=== PATIENT | female | born 1945 | race Caucasian/White ===

== ENCOUNTER 2023-03-09 12:39 | Emergency (ER) | payer OTHER ==
--- OUTSIDE RECORDS SUMMARY | 2023-03-09 12:43 | XMS REPORT | Continuity of Care Document ---
:1945 Author Organization [facility] t Address [address] [place] [address] [address] [place] [address] Care Team Providers Name Role Phone Saranya Wynn Attending Clinician Unavailable Naif Attending Clinician Unavailable Russ Spann III Attending Clinician Naif Admitting Clinician Unavailable Russ Spann III Admitting Clinician Payers Payer Name Policy Type Policy Number Effective Date Expiration Date Kelton godinez [facility] 53 [id number] Common [facility] Spirit - [facility] - MEDICARE [id number] COMPLETE (MEDICARE REPLACEMENT HMO) Problems Condition Condition Condition Status Onset Resolution Last Treating Co mments Source Name Details Category Date Date Treatment Clinician Date OSTEOARTHR OSTEOARTH Diagnosis Active 2017-06-06 Memoria ITIS RITIS 1-11 21:56:00 l Active 00:00: [facility] 05/11/2017 00 [facility] Essential Essential Problem 2017-09-07 Memoria (primary) (primary) 12:06:17 l hypertensi hypertensi Vikash segundo on on 09/07/2017 [facility] UNILATERAL UNILATERA Diagnosis Active 2017-06-06 Memoria PRIMARY L PRIMARY 21:56:00 l OSTEOARTHR OSTEOARTHR He sanya SANCHEZ ITPOOJA, RIGHT RIGHT Active [facility] Acute Acute Problem 2017-09-07 Memor ia posthemorr posthemorr 12:06:17 l hagic hagic Terry anemia anemia 09/07/2017 [facility] Hypothyroi Hypothyro Problem 2017-09-07 Memoria dism, idism, 12:06:17 l unspecifie unspecifie He sanya cm d 09/07/2017 [facility] 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 09/07/2017 [facility] Unspecifie Unspecifi Problem 2017-09-07 Memoria d asthma, ed asthma, 12:06:17 l uncomplica uncomplica He sanya vik vik 09/07/2017 [facility] Hypothyroi Hypothyroi Problem C ommon dism dism [facility] Gastroesop Gastroesop Problem C ommon hageal hageal Spirit reflux reflux - [facility], [facility] Medica l not Center specified Peripheral Peripheral Problem C ommon edema edema [facility] Hyperlipid Hyperlipid Problem C ommon emia emia [facility] [id number] Atheroscle Problem Co mmon rotic Spirit heart - [facility] disease of [facility] coronary Medical artery Center without angina pectoris Heart Heart Problem Common disease disease, Spirit unspecifie - [facility]I d [facility] [id number] Essential Problem Comm on hypertensi Spirit on [facility] [id number] Medicare Problem Comm on annual Spirit wellness - [facility] visit, [facility] Localized, Primary Problem Comm on primary osteoarthr Spiri t osteoarthr itis of - CHI itis of both hips [facility] pelvic [facility] region and Medica l thigh Center [id number] White coat Problem Com mon syndrome Spirit with - CHI diagnosis [facility] hypertensi Medica l on Center [id number] Glaucoma Problem Com mon [id number] suspect of Spiri t both eyes - [facility] [id number] Presence Problem Comm on of Spirit coronary - [facility]I angioplast [facility] and [facility] Actinic Actinic Problem Common keratosis keratoses Spir it - CHI [facility] [id number] Bilateral Problem Com mon edema of [facility] lower - CHI extremity [facility] Elevated Elevated Problem Commo n blood blood [facility] pressure pressure - CHI reading reading [facility] diagnosis diagnosis [facility] hypertensi hypertensi on on Skin Skin Problem Common cancer cancer [facility] [id number] Prediabete Problem Co mmon s [facility] [id number] Dysuria Problem Common [facility] [id number] Primary Problem Comm on osteoarthr Spirit itis of - [facility] left knee [facility] [id number] Sciatica Problem Commo n of left [facility] side [facility] [id number] Primary Problem Comm on osteoarthr Spirit itis of [facility] left hip [facility] History of Past Illness Condition Condition Condition Status Onset Resolution Last Treating Co mments Source Name Details Category Date Date Treatment Clinician Date Unilateral Unilatera Problem 2017-09-07 2017-09-07 Memoria primary l primary 06-09 12:06:17 12:06:17 l osteoarthr osteoarthr 04:35: He rmann itis, itis, 52 right hip right hip 06/09/2017 09/07/2017 [facility] Allergies, Adverse Reactions, Alerts Allergy Allergy Status Severity Reaction(s) Onset Inactive Treating Comm ents Source Name Type Date Date Clinician acetamin acetamin Active Unknown Commo n ophen / ophen / Spirit hydrocod hydrocod [facility] hydrocor hydrocor Active Unknown Commo n tisone tisone [facility] penicill penicill Active Memori a ins ins l Terry HYDROcod HYDROcod Active Memori a one one l [facility] Social History Social Habit Start Date Stop Date Quantity Comments Source History of Tobacco Common [facility] - Use [facility] Sex Assigned At Common Sp zuly - [facility] Social History 2017-05-31 2017-05-31 Jax jackson 00:26:09 00:26:09 Smoking Status Start Date Stop Date Source Never Smoker [facility] Medications Ordered Filled Start Stop Current Ordering Indication Dosage Frequency Signature Comments Components Source Medication Medication Date Date Medication? Clinician (SIG) Name Name Hyalgan 20 Hyalgan 20 2021-05 No 20mg C ommon mg mg 0-03 Spirit 00:00: - [facility] Hyalgan Hyalgan 2021-05 No 20mg Common 0-03 Spirit 00:00: - [facility] Hyalgan 20 Hyalgan 20 2021-0 No 20mg C ommon mg mg 01-24 Spirit 00:00: - [facility] Hyalgan 20 Hyalgan 20 2021-0 No 20mg C ommon mg mg 01-24 Spirit 00:00: - [facility] Hyalgan Hyalgan 2-0 No 20mg Common 01-24 Spirit 00:00: - [facility]I [facility] Hyalgan 20 Hyalgan 20 2021-0 No 20mg C ommon mg mg 01-24 Spirit 00:00: - [facility]I [facility] Hyalgan 20 Hyalgan 20 2021-0 No 20mg C ommon mg mg 01-17 Spirit 00:00: - [facility]I [facility] Hyalgan 20 Hyalgan 20 2021-0 No 20mg C ommon mg mg 01-17 Spirit 00:00: - [facility] Hyalgan Hyalgan 2021-0 No 20mg Common 01-17 Spirit 00:00: - [facility]I [facility] Hyalgan 20 Hyalgan 20 2021-0 No 20mg C ommon mg mg 01-17 Spirit 00:00: - CHI [facility] Bupivicaine Bupivicaine 2021-0 No 5mg Common Ocate Ocate 8-30 Spirit 00:00: - CHI [facility] Kenalog Kenalog 2021-0 No 40mg Common (Triamcinol (Triamcinol 8-30 S pirit one) one) 00:00: - CHI [facility] Bupivicaine Bupivicaine 2-0 No 5mg Common Ocate Ocate 8-30 Spirit 00:00: - CHI [facility] Kenalog Kenalog 2-0 No 40mg Common (Triamcinol (Triamcinol 8-30 S pirit one) one) 00:00: - CHI [facility] Bupivicaine Bupivicaine 2-0 No 5mg Common Ocate Ocate 8-30 Spirit 00:00: - CHI [facility] Kenalog Kenalog 2-0 No 40mg Common (Triamcinol (Triamcinol 8-30 S pirit one) one) 00:00: - CHI [facility] Bupivicaine Bupivicaine 2021-0 No 5mg Common Ocate Ocate 8-30 Spirit 00:00: - CHI [facility] Kenalog Kenalog 0 No 40mg Common (Triamcinol (Triamcinol 8-30 S pirit one) one) 00:00: - CHI [facility] Bupivicaine Bupivicaine 2021-0 No 5mg Common Ocate Ocate 8-30 Spirit 00:00: - CHI [facility] Kenalog Kenalog 0 No 40mg Common (Triamcinol (Triamcinol 8-30 S pirit one) one) 00:00: - CHI [facility] Bupivicaine Bupivicaine 2021-0 No 5mg Common Ocate Ocate 8-30 Spirit 00:00: - CHI [facility] Kenalog Kenalog 0 No 40mg Common (Triamcinol (Triamcinol 8-30 S pirit one) one) 00:00: - CHI [facility] Bupivicaine Bupivicaine 0 No 5mg Common Ocate Ocate 8-30 Spirit 00:00: - CHI 00 [facility] Kenalog Kenalog 0 No 40mg Common (Triamcinol (Triamcinol 8-30 S pirit one) one) 00:00: - CHI 00 [facility] Furosemide Furosemide 2017-0 Yes Na Wynn 1 tablet Common 07-20 Spirit 00:00: - CHI [facility] tramadol 0 No 50 mg = 1 Bong jennifer hydrochlori 2-01 tab, PO, l de 50 MG 13:59: RQ4H, PRN Herm carlos Oral Tablet 00 Pain Score 6-10, Q 4 hrs prn severe pain, # 60 tab, 0 Refill(s) tramadol 0 No 50 mg = 1 Bong jennifer hydrochlori 2-01 tab, PO, l de 50 MG 13:59: RQ4H, PRN Herm carlos Oral Tablet 00 Pain Score 6-10, Q 4 hrs prn severe pain, # 60 tab, 0 Refill(s) celecoxib 0 Yes 200 mg = 1 Me moria 200 mg oral 2-01 cap, PO, l capsule 13:42: Daily, # Lukas n 00 30 cap, 0 Refill(s) Aspirin 325 2018- Yes 325 mg = 1 Memoria MG Enteric 2-01 tab, PO, l Coated 13:42: BID, # 60 Lukas n Tablet 00 tab, 0 Refill(s) celecoxib 2017- Yes 200 mg = 1 Me moria 200 mg oral 2-01 cap, PO, l capsule 13:42: Daily, # Lukas n 00 30 cap, 0 Refill(s) Aspirin 325 2017- Yes 325 mg = 1 Memoria MG Enteric 2-01 tab, PO, l Coated 13:42: BID, # 60 Lukas n Tablet 00 tab, 0 Refill(s) clindamycin 2017-0 No 600 mg, 50 Memoria (SCIP) 1-31 mL, Route: l 07:00: IVPB, Drug Terry 00 form: INJ, Q6H, Dosing Weight 89.091, kg, Start date: 05/31/17 1:00:00 RUBBING BED OPERATOR, Duration: 3 doses or times, Stop date: 05/31/17 13:00:00 RUBBING BED OPERATOR, ABX Indication : Surgical Prophylaxi s clindamycin 2017-0 No 600 mg, 50 Memoria (SCIP) 1-31 mL, Route: l 07:00: IVPB, Drug [facility] 00 form: INJ, Q6H, Dosing Weight 89.091, kg, Start date: 05/31/17 1:00:00 RUBBING BED OPERATOR, Duration: 3 doses or times, Stop date: 05/31/17 13:00:00 RUBBING BED OPERATOR, ABX Indication : Surgical Prophylaxi s celecoxib 2017-0 No Notes: Memori a 1-31 NSAID. l 03:00: Please [facility] 00 check indication . Not for seizure. (Same As: CeleBREX) celecoxib 2017-0 No Notes: Memori a 1-31 NSAID. l 03:00: Please [facility] 00 check indication . Not for seizure. (Same As: CeleBREX) Aspirin 2017-0 No 325 mg, Memoria 1-31 Route: PO, l 01:03: Q12H, [facility] Dosing Weight 89.091, kg, For patients with risk of bleeding, Start date: 05/30/17 19:03:00 RUBBING BED OPERATOR, Stop date: 06/29/17 9:00:00 RUBBING BED OPERATOR Aspirin 2018-0 No 325 mg, Memoria 1-31 Route: PO, l 01:03: Q12H, Terry 00 Dosing Weight 89.091, kg, For patients with risk of bleeding, Start date: 05/30/17 19:03:00 RUBBING BED OPERATOR, Stop date: 06/29/17 9:00:00 RUBBING BED OPERATOR Clindamycin No 600 mg, 50 Memoria 1-31 mL, Route: l 00:00: IVPB, Drug Terry 00 form: INJ, Q6H, Dosing Weight 89.091, kg, Start date: 05/30/17 18:00:00 RUBBING BED OPERATOR, Duration: 3 doses or times, Stop date: 05/31/17 6:00:00 RUBBING BED OPERATOR, ABX Indication : Surgical Prophylaxi s Clindamycin 2017- No 600 mg, 50 Memoria 1-31 mL, Route: l 00:00: IVPB, Drug [facility] 00 form: INJ, Q6H, Dosing Weight 89.091, kg, Start date: 05/30/17 18:00:00 RUBBING BED OPERATOR, Duration: 3 doses or times, Stop date: 05/31/17 6:00:00 RUBBING BED OPERATOR, ABX Indication : Surgical Prophylaxi s Docusate No Notes: Memoria 1-30 (Same as: l 23:00: Colace) Terry 00 (Do Not Crush) Aspirin 325 No Notes: (Do Memoria MG Enteric 1-30 Not Crush) l Coated 23:00: Do not Terry Tablet 00 crush or chew. Docusate No Notes: Memoria 1-30 (Same as: l 23:00: Colace) [facility] 00 (Do Not Crush) Aspirin 325 No Notes: (Do Memoria MG Enteric 1-30 Not Crush) l Coated 23:00: Do not Terry Tablet 00 crush or chew. Ondansetron No Notes: Bong jennifer 1-30 (Same as: l 22:00: Zofran) [facility] 00 MEDICATION WASTE Product Size: 4 mg Product Wasted: ___ mg gabapentin No Notes: Memor ia 1-30 (Same as: l 22:00: Neurontin) Terry Acetaminoph No Notes: Max Memoria en 1-30 acetaminop l 22:00: hen 4000 [facility] 00 mg/day (4 gm/day). (Same as: Tylenol Extra Strength) celecoxib No Notes: Memori a 1-30 NSAID. l 22:00: Please [facility] 00 check indication . Not for seizure. (Same As: CeleBREX) Tramadol No Notes: Not Mem oria 1-30 to exceed l 22:00: 400mg/day. (Same As: Ultram) Ondansetron No Notes: Bong jennifer 30 (Same as: l 22:00: Zofran) MEDICATION WASTE Product Size: 4 mg Product Wasted: ___ mg gabapentin No Notes: Memor ia 05-30 (Same as: l 22:00: Neurontin) Acetaminoph No Notes: Max Memoria en 1-30 acetaminop l 22:00: hen 4000 [facility] 00 mg/day (4 gm/day). (Same as: Tylenol Extra Strength) celecoxib No Notes: Memori a 1-30 NSAID. l 22:00: Please [facility] 00 check indication . Not for seizure. (Same As: CeleBREX) Tramadol No Notes: Not Mem oria -30 to exceed l 22:00: 400mg/day. (Same As: Ultram) neostigmine No Route: IV, Memoria (ANES) 05-30 Drug form: l 21:20: INJ, ONCE, Stop date: 05/30/17 15:20:00 RUBBING BED OPERATOR glycopyrrol No Route: IV, Memoria ate (ANES) 05-30 Drug form: l 21:20: INJ, ONCE, Stop date: 05/30/17 15:20:00 RUBBING BED OPERATOR ondansetron No Route: IV, Memoria (ANES) 05-30 Drug form: l 21:20: INJ, ONCE, Stop date: 05/30/17 15:20:00 RUBBING BED OPERATOR clindamycin No Route: IV, Memoria (ANES) 30 Drug form: l 21:20: INJ, ONCE, Stop date: 05/30/17 15:20:00 RUBBING BED OPERATOR Ondansetron No Notes: Bong jennifer 05-30 (Same as: l 21:20: Zofran) MEDICATION WASTE Product Size: 4 mg Product Wasted: ___ mg Naloxone No Notes: Memoria 05-30 Same as l 21:20: Narcan Flumazenil No Notes: Memor ia 05-30 (Same as: l 21:20: Romazicon) Fentanyl No Notes: Memoria 05-30 (Same as: l 21:20: Sublimaze) Preservati ve free. Calcium No 1,000 mL, Memor ia Chloride 05-30 Rate: 125 l 0.0014 21:20: ml/hr, [facility] MEQ/ML / 00 Infuse Potassium over: 8 Chloride hr, Route: 0.004 IV, Dosing MEQ/ML / Weight Sodium 89.091 kg, Chloride Total 0.103 Volume: MEQ/ML / 1,000, Sodium Start Lactate date: 0.028 05/30/17 MEQ/ML 15:20:00 Injectable RUBBING BED OPERATOR, Solution Duration: 30 day, Stop date: 06/29/17 15:19:00 RUBBING BED OPERATOR, 1.98, m2 Hydralazine No 10 mg, Bong jennifer 05-30 Route: l 21:20: IVP, [facility] 00 Q20Min, Dosing Weight 89.091, kg, PRN Elevated BP, Start date: 05/30/17 15:20:00 RUBBING BED OPERATOR, Duration: 2 doses or times, Stop date: Limited # of times Morphine No Notes: Memoria 05-30 (Same l 21:20: as:MORPhin e Sulfate) Metoprolol No 1 mg, Memori a 05-30 Route: l 21:20: IVP, Terry 00 Q5Min, Dosing Weight 89.091, kg, PRN Other -See Comment, Start date: 05/30/17 15:20:00 RUBBING BED OPERATOR, Duration: 5 doses or times, Stop date: Limited # of times Oxycodone No Notes: Memori a Hydrochlori 05-30 (Same as: l de 5 MG 21:20: Roxicodone Herm carlos Oral Tablet ) neostigmine No Route: IV, Memoria (ANES) 05-30 Drug form: l 21:20: INJ, ONCE, Stop date: 05/30/17 15:20:00 RUBBING BED OPERATOR glycopyrrol No Route: IV, Memoria ate (ANES) 05-30 Drug form: l 21:20: INJ, ONCE, Stop date: 05/30/17 15:20:00 RUBBING BED OPERATOR ondansetron No Route: IV, Memoria (ANES) 05-30 Drug form: l 21:20: INJ, ONCE, Stop date: 05/30/17 15:20:00 RUBBING BED OPERATOR clindamycin No Route: IV, Memoria (ANES) 05-30 Drug form: l 21:20: INJ, ONCE, Stop date: 05/30/17 15:20:00 RUBBING BED OPERATOR Ondansetron No Notes: Bong jennifer 05-30 (Same as: l 21:20: Zofran) MEDICATION WASTE Product Size: 4 mg Product Wasted: ___ mg Naloxone No Notes: Memoria 05-30 Same as l 21:20: Narcan Flumazenil No Notes: Memor ia 05-30 (Same as: l 21:20: Romazicon) Fentanyl No Notes: Memoria 05-30 (Same as: l 21:20: Sublimaze) Preservati ve free. Calcium No 1,000 mL, Memor ia Chloride 05-30 Rate: 125 l 0.0014 21:20: ml/hr, Terry MEQ/ML / 00 Infuse Potassium over: 8 Chloride hr, Route: 0.004 IV, Dosing MEQ/ML / Weight Sodium 89.091 kg, Chloride Total 0.103 Volume: MEQ/ML / 1,000, Sodium Start Lactate date: 0.028 05/30/17 MEQ/ML 15:20:00 Injectable RUBBING BED OPERATOR, Solution Duration: 30 day, Stop date: 06/29/17 15:19:00 RUBBING BED OPERATOR, 1.98, m2 Hydralazine No 10 mg, Bong jennifer 1-30 Route: l 21:20: IVP, Terry 00 Q20Min, Dosing Weight 89.091, kg, PRN Elevated BP, Start date: 05/30/17 15:20:00 RUBBING BED OPERATOR, Duration: 2 doses or times, Stop date: Limited # of times Morphine No Notes: Memoria 1-30 (Same l 21:20: as:MORPhin Terry 00 e Sulfate) Metoprolol No 1 mg, Memori a 1-30 Route: l 21:20: IVP, Terry 00 Q5Min, Dosing Weight 89.091, kg, PRN Other -See Comment, Start date: 05/30/17 15:20:00 RUBBING BED OPERATOR, Duration: 5 doses or times, Stop date: Limited # of times Oxycodone No Notes: Memori a Hydrochlori 30 (Same as: l de 5 MG 21:20: Roxicodone Herm carlos Oral Tablet ) Diphenhydra No Notes: Bong jennifer mine -30 (Same as: l 21:03: Benadryl) Terry Ondansetron No Notes: Bong jennifer 1-30 (Same as: l 21:03: Zofran) Terry 00 MEDICATION WASTE Product Size: 4 mg Product Wasted: ___ mg Morphine No Notes: Memoria 1-30 (Same l 21:03: as:MORPhin Terry 00 e Sulfate) 1/2 NS No 1,000 mL, Memori a 1,000 mL 05-30 Rate: 75 l 21:03: ml/hr, [facility] 00 Infuse over: 13.3 hr, Route: IV, Dosing Weight 89.091 kg, Total Volume: 1,000, Start date: 05/30/17 15:03:00 RUBBING BED OPERATOR, Duration: 30 day, Stop date: 06/29/17 15:02:00 RUBBING BED OPERATOR, 1.98, m2 Diphenhydra No Notes: Bong jennifer mine 1-30 (Same as: l 21:03: Benadryl) Terry Ondansetron No Notes: Bong jennifer 1-30 (Same as: l 21:03: Zofran) MEDICATION WASTE Product Size: 4 mg Product Wasted: ___ mg Morphine 2017- No Notes: Memoria 30 (Same l 21:03: as:MORPhin e Sulfate) 05/02 NS 2017-0 No 1,000 mL, Memori a 1,000 mL 05-30 Rate: 75 l 21:03: ml/hr, Infuse over: 13.3 hr, Route: IV, Dosing Weight 89.091 kg, Total Volume: 1,000, Start date: 05/30/17 15:03:00 RUBBING BED OPERATOR, Duration: 30 day, Stop date: 06/29/17 15:02:00 RUBBING BED OPERATOR, 1.98, m2 lidocaine No Route: IV, Me moria (ANES) 05-30 Drug form: l 20:36: INJ, ONCE, Stop date: 05/30/17 14:36:00 RUBBING BED OPERATOR rocuronium 0 No Route: IV, M emoria (ANES) 05-30 Drug form: l 20:36: INJ, ONCE, Stop date: 05/30/17 14:36:00 RUBBING BED OPERATOR fentaNYL 0 No Route: IV, Mem oria (ANES) 05-30 Drug form: l 20:36: INJ, ONCE, Stop date: 05/30/17 14:36:00 RUBBING BED OPERATOR propofol 2017-0 No Route: IV, Mem oria (ANES) 05-30 Drug form: l 20:36: INJ, ONCE, Stop date: 05/30/17 14:36:00 RUBBING BED OPERATOR lidocaine 2017-0 No Route: IV, Me moria (ANES) 05-30 Drug form: l 20:36: INJ, ONCE, Stop date: 05/30/17 14:36:00 RUBBING BED OPERATOR rocuronium 2017-0 No Route: IV, M emoria (ANES) 05-30 Drug form: l 20:36: INJ, ONCE, Stop date: 05/30/17 14:36:00 RUBBING BED OPERATOR fentaNYL 2017-0 No Route: IV, Mem oria (ANES) 05-30 Drug form: l 20:36: INJ, ONCE, Stop date: 05/30/17 14:36:00 RUBBING BED OPERATOR propofol 2018-0 No Route: IV, Mem oria (ANES) -30 Drug form: l 20:36: INJ, ONCE, Stop date: 05/30/17 14:36:00 RUBBING BED OPERATOR dexamethaso 2018-0 No Route: IV, Memoria ne (ANES) -30 Drug form: l 20:26: INJ, ONCE, Stop date: 05/30/17 14:26:00 RUBBING BED OPERATOR dexamethaso 2018-0 No Route: IV, Memoria ne (ANES) 30 Drug form: l 20:26: INJ, ONCE, Stop date: 05/30/17 14:26:00 RUBBING BED OPERATOR Lactated 2018-0 No Route: IV, Mem oria Ringers 1-30 Total l Injection 19:21: Volume: Eloina nn IV (ANES) 00 1,000, 1000 mL Start date: 05/30/17 13:21:00 RUBBING BED OPERATOR, Stop date: 05/30/17 14:21:00 RUBBING BED OPERATOR Lactated 2018-0 No Route: IV, Mem oria Ringers 1-30 Total l Injection 19:21: Volume: Eloina nn IV (ANES) 00 1,000, 1000 mL Start date: 05/30/17 13:21:00 RUBBING BED OPERATOR, Stop date: 05/30/17 14:21:00 RUBBING BED OPERATOR Probiotic 2018-0 Yes 1 cap, PO, Me moria Formula 1-18 Daily, 0 l oral 21:12: Refill(s) Terry capsule 00 Probiotic 2017-0 Yes 1 cap, PO, Me moria Formula 1-18 Daily, 0 l oral 21:12: Refill(s) [facility] capsule 00 tramadol 2017-0 No 50 mg = 1 Bong jennifer hydrochlori 1-18 tab, PO, l de 50 MG 21:11: PRN, 0 Terry Oral Tablet 00 Refill(s) tramadol 2017-0 No 50 mg = 1 Bong jennifer hydrochlori 1-18 tab, PO, l de 50 MG 21:11: PRN, 0 Terry Oral Tablet 00 Refill(s) Sulfamethox 2017-0 No PO, Daily, Memoria azole 1-18 0 l 21:10: Refill(s) Terry 00 Sulfamethox 2017-0 No PO, Daily, Memoria azole 1-18 0 l 21:10: Refill(s) [facility] 00 Coenzyme Coenzyme Yes Na Wynn 1 capsule Common Q-10 Q-10 with a Spirit meal - [facility] Red Yeast Red Yeast Yes Na Wynn as Co mmon Rice Rice directed Spirit Extract Extract - [facility] Coenzyme Coenzyme No 1{capsu QD Coenzyme Q-10 100 MG Q-10 100 MG le_with Q-10 100 _a_meal MG } Furosemide Furosemide No 1{table QD Furosemide 40 MG 40 MG t} 40 MG methylPREDN methylPREDN No methylPRED ISolone 4 ISolone 4 NISolone 4 MG MG MG methylPREDN methylPREDN No methylPRED ISolone 4 ISolone 4 NISolone 4 MG MG MG Coenzyme Coenzyme No 1{capsu QD Coenzyme Q-10 100 MG Q-10 100 MG le_with Q-10 100 _a_meal MG } Furosemide Furosemide No 1{table QD Furosemide 40 MG 40 MG t} 40 MG Red Yeast Red Yeast No Red Yeast Rice Rice Rice Extract 300 Extract 300 Extract MG MG 300 MG methylPREDN methylPREDN No methylPRED ISolone 4 ISolone 4 NISolone 4 MG MG MG Coenzyme Coenzyme No 1{capsu QD Coenzyme Q-10 100 MG Q-10 100 MG le_with Q-10 100 _a_meal MG } Furosemide Furosemide No 1{table QD Furosemide 40 MG 40 MG t} 40 MG Red Yeast Red Yeast No Red Yeast Rice Rice Rice Extract 300 Extract 300 Extract MG MG 300 MG Red Yeast Red Yeast No Red Yeast Rice Rice Rice Extract 300 Extract 300 Extract MG MG 300 MG Coenzyme Coenzyme No 1{capsu QD Coenzyme Q-10 100 MG Q-10 100 MG le_with Q-10 100 _a_meal MG } Furosemide Furosemide No 1{table QD Furosemide 40 MG 40 MG t} 40 MG methylPREDN methylPREDN No methylPRED ISolone 4 ISolone 4 NISolone 4 MG MG MG Red Yeast Red Yeast No Red Yeast Rice Rice Rice Extract 300 Extract 300 Extract MG MG 300 MG Coenzyme Coenzyme No 1{capsu QD Coenzyme Q-10 100 MG Q-10 100 MG le_with Q-10 100 _a_meal MG } Furosemide Furosemide No 1{table QD Furosemide 40 MG 40 MG t} 40 MG Red Yeast Red Yeast No Red Yeast Rice Rice Rice Extract 300 Extract 300 Extract MG MG 300 MG Coenzyme Coenzyme No 1{capsu QD Coenzyme Q-10 100 MG Q-10 100 MG le_with Q-10 100 _a_meal MG } Furosemide Furosemide No 1{table QD Furosemide 40 MG 40 MG t} 40 MG Red Yeast Red Yeast No Red Yeast Rice Rice Rice Extract 300 Extract 300 Extract MG MG 300 MG Furosemide Furosemide No 1{table QD Furosemide 40 MG 40 MG t} 40 MG Coenzyme Coenzyme No 1{capsu QD Coenzyme Q-10 100 MG Q-10 100 MG le_with Q-10 100 _a_meal MG } Red Yeast Red Yeast No Red Yeast Rice Rice Rice Extract 300 Extract 300 Extract MG MG 300 MG Furosemide Furosemide No 1{table QD Furosemide 40 MG 40 MG t} 40 MG Coenzyme Coenzyme No 1{capsu QD Coenzyme Q-10 100 MG Q-10 100 MG le_with Q-10 100 _a_meal MG } methylPREDN methylPREDN No methylPRED ISolone 4 ISolone 4 NISolone 4 MG MG MG Red Yeast Red Yeast No Red Yeast Rice Rice Rice Extract 300 Extract 300 Extract MG MG 300 MG Furosemide Furosemide No 1{table QD Furosemide 40 MG 40 MG t} 40 MG Coenzyme Coenzyme No 1{capsu QD Coenzyme Q-10 100 MG Q-10 100 MG le_with Q-10 100 _a_meal MG } methylPREDN methylPREDN No methylPRED ISolone 4 ISolone 4 NISolone 4 MG MG MG Red Yeast Red Yeast No Red Yeast Rice Rice Rice Extract 300 Extract 300 Extract MG MG 300 MG Vital Signs Vital Name Observation Time Observation Value Comments Source height 2022-01-31 09:45:00 60.00 [in_i] [facility] weight 2022-01-31 09:45:00 190 [lb_av] [facility] temperature 2022-01-31 09:45:00 97.8 [degF] [facility] bmi 2022-01-31 09:45:00 37.1 kg/m2 [facility] blood pressure 2022-01-31 09:45:00 128 mm[Hg] [facility] - systolic [facility] blood pressure 2022-01-31 09:45:00 80 mm[Hg] [facility] - diastolic [facility] height 2022-01-24 09:45:00 60.00 [in_i] [facility] weight 2022-01-24 09:45:00 190 [lb_av] [facility] temperature 2022-01-24 09:45:00 97.4 [degF] [facility] bmi 2022-01-24 09:45:00 37.1 kg/m2 [facility] blood pressure 2022-01-24 09:45:00 138 mm[Hg] [facility] blood pressure 2022-01-24 09:45:00 86 mm[Hg] [facility] height 2022-01-17 10:15:00 60.00 [in_i] [facility] weight 2022-01-17 10:15:00 190 [lb_av] [facility] temperature 2022-01-17 10:15:00 97.8 [degF] [facility] bmi 2022-01-17 10:15:00 37.1 kg/m2 [facility] 2022-01-17 10:15:00 136 mm[Hg] [facility] blood pressure 2022-01-17 10:15:00 86 mm[Hg] [facility] height 2021-12-28 10:00:00 60.00 [in_i] [facility] weight 2021-12-28 10:00:00 190 [lb_av] [facility] temperature 2021-12-28 10:00:00 96.5 [degF] [facility] bmi 2021-12-28 10:00:00 37.1 kg/m2 [facility] blood pressure 2021-12-28 10:00:00 138 mm[Hg] [facility] blood pressure 2021-12-28 10:00:00 86 mm[Hg] [facility] Diastolic (mm Hg) 2017-06-01 13:45:00 [facility] Respitory Rate 2017-06-01 13:45:00 [facility] Heart Rate 2017-06-01 13:45:00 [facility] Temperature Oral (F) 2017-06-01 13:45:00 98.1 F [facility] Systolic (mm Hg) 2017-06-01 13:45:00 [facility] Temperature Oral (F) 2017-06-01 10:00:00 98.2 F [facility] Heart Rate 2017-06-01 10:00:00 [facility] Systolic (mm Hg) 2017-06-01 10:00:00 [facility] Diastolic (mm Hg) 2017-06-01 10:00:00 [facility] Respitory Rate 2017-06-01 10:00:00 [facility] Respitory Rate 2017-06-01 06:00:00 [facility] Heart Rate 2017-06-01 06:00:00 [facility] Temperature Oral (F) 2017-06-01 06:00:00 97.9 F [facility] Systolic (mm Hg) 2017-06-01 06:00:00 [facility] Diastolic (mm Hg) 2017-06-01 06:00:00 [facility] BMI Calculated 2017-05-31 00:19:00 [facility] Weight 2017-05-31 00:19:00 [facility] Height 2017-05-31 00:19:00 152.4 cm [facility] Height 2017-05-18 20:38:00 152.4 cm [facility] Weight 2017-05-18 20:38:00 [facility] BMI Calculated 2017-05-18 20:38:00 [facility] Procedures Procedure Date / Time Performing Clinician Source Performed Total hip replacement 2017-05-30 06:00:00 [facility] Abdominal hysterectomy [facility] Cardiac catheter[facility] procedure phase<sup>1</sup> Encounters Start End Encounter Admission Attending Care Care Encounter Source Date/Time Date/Time Type Type Clinicians Facility Department ID 2022-01-31 Out[facility] [id number] Common 07:11:00 [facility] 2022-01-04 Outpatient Wynn, Na STLMLC ST[facility] [id number] Common 09:37:00 [facility] 2021-12-27 Outpatient Wynn, Na STLMLC ST[facility] [id number] Common 07:59:00 [facility] 2021-12-21 Outpatient Wynn, Na STLMLC STLMLC [id number] 2 Common 10:58:00 [id number] [facility] 2021-11-30 Outpatient Wynn, Na STLMLC STLMLC [id number] Common 15:16:00 [facility] 2021-05-26 Outpatient Wynn, Na STLMLC STLMLC [id number] 2 Common 11:24:34 [id number] [facility] 2021-05-26 Outpatient Wynn, Na STLMLC STLMLC [id number] 2 Common 11:15:29 [id number] [facility] 2022-01-31 2022-01-31 (IN/ASP) STLMLC STLMLC [id number] C ommon 00:00:00 00:00:00 INJ ASP [facility] 2022-01-24 2022-01-24 (IN/ASP) STLMLC STLMLC [id number] C ommon 00:00:00 00:00:00 INJ ASP [facility] 2022-01-17 2022-01-17 (IN/ASP) STLMLC STLMLC [id number] C ommon 00:00:00 00:00:00 INJ ASP [facility] 2022-01-12 2022-01-12 (TEL) STLMLC STLMLC [id number] Co mmon 00:00:00 00:00:00 [facility] 2022-01-05 2022-01-05 (TEL) STLMLC STLMLC [id number] Co mmon 00:00:00 00:00:00 [facility] 2021-12-28 2021-12-28 OFFICE STLMLC STLMLC [id number] Co mmon 00:00:00 00:00:00 VISIT NEW Spir it PT LEVEL 4 [facility] 2021-12-10 2021-12-10 Outpatient FOG_Goytia_ AOSM AOSM [id number] Kathy 00:00:00 00:00:00 Hari [id number] [facility] 2021-11-30 2021-11-30 (TEL) STLMLC STLMLC [id number] Co mmon 00:00:00 00:00:00 [facility] 2021-07-20 2021-07-20 (TEL) STLMLC STLMLC [id number] Co mmon 00:00:00 00:00:00 [facility] 2020-01-15 2020-01-15 [facility] [id number] Common 02:29:00 02:29:[address] [facility] 2020-01-15 2020-01-15 Outpatient STLMLC STLMLC [id number] Common 00:00:00 00:00:00 [facility] 2020-01-13 2020-01-13 [facility] [id number] Common 08:12:00 08:12:[address] [facility] 2019-10-23 2019-10-23 [facility] [id number] Common 15:19:00 15:19:[address] [facility] 2019-10-06 2019-10-06 [facility] [id number] Common 21:24:00 21:24:[address] [facility] 2019-10-04 2019-10-04 [facility] [id number] Common 15:00:00 15:00:[address] [facility] 2019-10-04 2019-10-04 [facility] [id number] Common 14:20:00 14:20:[address] [facility] 2019-10-03 2019-10-03 [facility] [id number] Common 10:49:00 10:49:[address] [facility] 2019-03-19 2019-03-19 [facility] [id number] Common 09:00:00 09:00:[address] [facility] 2018-11-22 2018-11-22 [facility] [id number] Common 13:00:00 13:00:[address] [facility] 2018-08-23 2018-08-23 [facility] [id number] Common 10:40:00 10:40:[address] [facility] 2018-05-28 2018-05-28 [facility] [id number] Common 09:30:00 09:30:[address] [facility] 2018-02-01 2018-02-01 [facility] [id number] Common 09:00:00 09:00:[address] [facility] 2017-11-02 2017-11-02 [facility] [id number] Common 09:45:00 09:45:[address] [facility] 2017-07-20 2017-07-20 [facility] [id number] Common 13:00:00 13:00:[address] [facility] 2017-05-30 2017-06-01 [facility] [id number] Memoria 13:50:00 18:45:[address] [facility] 2017-05-30 2017-06-01 Inpatient nullFlavo [facility] [id number] Memoria 13:50:00 18:45:[address] [facility] 2017-05-30 2017-06-01 Outpatient Zana [facility] [id number] 07:50:00 12:45:00 Russ H 00 Results Test Description Test Time Test Comments Results Result Comments Source HEMATOLOGY 2017-06-01 10:53:00 Test Item Value Reference Range Interpretation Comme nts MCHC (test code = MCHC) 32.4 32.0-36.0 [id number] 10:53:00 Test Item Value Reference Range Interpretation Comments MCH (test code = MCH) 28.6 pg 27.0-31.0 [facility] HospitalZahmaseOPQTBWIORX6714-91-41 10:53:00 Test Item Value Reference Range Interpretation Comments MCV (test code = MCV) 88.4 80.0-98.0 [facility] HospitalEzbcargGFWLJPGURZ6577-30-89 10:53:00 Test Item Value Reference Range Interpretation Comments Hct (test code = Hct) 31.9 36.0-48.0 [facility] HospitalUzrzxqfPCNLWQPCFD2557-01-45 10:53:00 Test Item Value Reference Range Interpretation Comments Hgb (test code = Hgb) 10.3 12.0-16.0 [facility] HospitalQralpuhYFSHSQXNWV1237-67-52 10:53:00 Test Item Value Reference Range Interpretation Comments RBC (test code = RBC) 3.61 4.20-5.40 [facility] HospitalSaijbxtQBXYLZVWYY5046-96-53 10:53:00 Test Item Value Reference Range Interpretation Comments WBC (test code = WBC) 10.4 3.7-10.4 [facility] HospitalVdqowszVJQTASKQKG5771-73-92 10:53:00 Test Item Value Reference Range Interpretation Comments Segs (test code = Segs) 70.1 45.0-75.0 [facility] HospitalUqfglsnTLGLAHLRKP9853-26-68 10:53:00 Test Item Value Reference Range Interpretation Comments Segs-Bands # (test code = Segs-Bands #) 7.3 1.5-8.1 [facility] HospitalYkqkkipASDTCTAXYW8987-09-45 10:53:00 Test Item Value Reference Range Interpretation Comments Lymphocytes # (test code = Lymphocytes 1.7 1.0-5.5 #) [facility] HospitalLlbqmpyTOZUQWUGYJ9154-29-45 10:53:00 Test Item Value Reference Range Interpretation Comments Monocytes # (test code = Monocytes #) 1.1 <=0.8 [facility] HospitalAgkixywKYJKMLWMKI5490-96-40 10:53:00 Test Item Value Reference Range Interpretation Comments Basophils (test code = Basophils) 0.6 <=1.0 [facility] HospitalMpflmjlEYGSWBXZBP7312-36-12 10:53:00 Test Item Value Reference Range Interpretation Comments Lymphocytes (test code = Lymphocytes) 16.0 20.0-40.0 [facility] HospitalWxypdpgNNJIRGOQOK1120-13-52 10:53:00 Test Item Value Reference Range Interpretation Comments Monocytes (test code = Monocytes) 10.4 2.0-12.0 [facility] HospitalKnsuuugWGOPQSARKF5083-49-95 10:53:00 Test Item Value Reference Range Interpretation Comments Eosinophils # (test code = Eosinophils 0.3 <=0.5 #) [facility] HospitalSfmkgywCOIPNXBINQ0272-75-91 10:53:00 Test Item Value Reference Range Interpretation Comments Basophils # (test code = Basophils #) 0.1 <=0.2 [facility] HospitalNjvdjnkROQHTVCUMR1152-79-88 10:53:00 Test Item Value Reference Range Interpretation Comments Eosinophils (test code = Eosinophils) 2.9 <=4.0 [facility] HospitalUuipcaiCIDVBJPLTZ9493-09-28 10:53:00 Test Item Value Reference Range Interpretation Comments MPV (test code = MPV) 8.4 7.4-10.4 [facility] HospitalTklbqwvZEKKXJGOWS7754-68-37 10:53:00 Test Item Value Reference Range Interpretation Comments Platelet (test code = Platelet) 246 133-450 [facility] HospitalSabieyoXMRGWVBIBR5257-61-11 10:53:00 Test Item Value Reference Range Interpretation Comments RDW (test code = RDW) 14.6 11.5-14.5 [facility] HospitalYkgnsfqQXUEUWVPBD1232-07-95 10:53:00 Test Item Value Reference Range Interpretation Comments MCHC (test code = MCHC) 32.4 32.0-36.0 [facility] HospitalZyqzkvrJWIJIKKWLH8384-36-08 10:53:00 Test Item Value Reference Range Interpretation Comments MCH (test code = MCH) 28.6 pg 27.0-31.0 [facility] HospitalEmkrpckRBLJMEQGEF8112-54-82 10:53:00 Test Item Value Reference Range Interpretation Comments MCV (test code = MCV) 88.4 80.0-98.0 [facility] HospitalAjhaajdHMXBDXIOIA3910-98-03 10:53:00 Test Item Value Reference Range Interpretation Comments Hct (test code = Hct) 31.9 36.0-48.0 [facility] HospitalUbfbiwgBKRPZEQIGR0673-10-13 10:53:00 Test Item Value Reference Range Interpretation Comments Hgb (test code = Hgb) 10.3 12.0-16.0 [facility] HospitalDjolhzgPTPPHWSKWD3624-44-13 10:53:00 Test Item Value Reference Range Interpretation Comments RBC (test code = RBC) 3.61 4.20-5.40 [facility] HospitalVxphujqTYTHMUCWCQ6859-76-70 10:53:00 Test Item Value Reference Range Interpretation Comments WBC (test code = WBC) 10.4 3.7-10.4 [facility] HospitalWrfjnktTGQBUUCFVI2138-29-71 10:53:00 Test Item Value Reference Range Interpretation Comments Segs (test code = Segs) 70.1 45.0-75.0 [facility] HospitalIgvdxmoPSWWDVQBND2488-34-00 10:53:00 Test Item Value Reference Range Interpretation Comments Segs-Bands # (test code = Segs-Bands #) 7.3 1.5-8.1 [facility] HospitalUqvelyzYCACPLSQCA9731-73-41 10:53:00 Test Item Value Reference Range Interpretation Comments Lymphocytes # (test code = Lymphocytes 1.7 1.0-5.5 #) [facility] HospitalKangvntDGRIDXWFCH2876-78-51 10:53:00 Test Item Value Reference Range Interpretation Comments Monocytes # (test code = Monocytes #) 1.1 <=0.8 [facility] HospitalMvbdfmwXLNJBFTDSB7580-37-70 10:53:00 Test Item Value Reference Range Interpretation Comments Basophils (test code = Basophils) 0.6 <=1.0 [facility] HospitalCnrepgtFRHQGUZZLW7663-56-27 10:53:00 Test Item Value Reference Range Interpretation Comments Lymphocytes (test code = Lymphocytes) 16.0 20.0-40.0 [facility] HospitalBwjigaqIEYXSUXFXS6258-35-95 10:53:00 Test Item Value Reference Range Interpretation Comments Monocytes (test code = Monocytes) 10.4 2.0-12.0 [facility] HospitalJkjifmgCTPWPPXDNR7515-26-01 10:53:00 Test Item Value Reference Range Interpretation Comments Eosinophils # (test code = Eosinophils 0.3 <=0.5 #) [facility] HospitalCmunuzjXRQZUKKJRR2258-82-92 10:53:00 Test Item Value Reference Range Interpretation Comments Basophils # (test code = Basophils #) 0.1 <=0.2 [facility] HospitalLgcxrdkCPFNMQDQME8211-43-30 10:53:00 Test Item Value Reference Range Interpretation Comments Eosinophils (test code = Eosinophils) 2.9 <=4.0 [facility] HospitalOehxgrlSPOJHNVEPP8240-18-79 10:53:00 Test Item Value Reference Range Interpretation Comments MPV (test code = MPV) 8.4 7.4-10.4 [facility] HospitalBpfydwoGJXMYGYXTH4263-90-72 10:53:00 Test Item Value Reference Range Interpretation Comments Platelet (test code = Platelet) 246 133-450 [facility] HospitalZxmrhdsTPVSGMXWHR6607-95-46 10:53:00 Test Item Value Reference Range Interpretation Comments RDW (test code = RDW) 14.6 11.5-14.5 [facility]2018-01-31 11:39:00 Test Item Value Reference Range Interpretation Comments eGFR (test code = eGFR) 87 [facility]2018-01-31 11:39:00 Test Item Value Reference Range Interpretation Comments Glucose Lvl (test code = Glucose Lvl) 112 70-99 [facility]2018-01-31 11:39:00 Test Item Value Reference Range Interpretation Comments BUN (test code = BUN) 12 - [facility]2018-01-31 11:39:00 Test Item Value Reference Range Interpretation Comments Creatinine Lvl (test code = Creatinine 0.70 0.50-1.40 Lvl) [facility]2018-01-31 11:39:00 Test Item Value Reference Range Interpretation Comments Sodium Lvl (test code = Sodium Lvl) 140 135-145 [facility]2018-01-31 11:39:00 Test Item Value Reference Range Interpretation Comments CO2 (test code = CO2) 27 24-32 [facility] HospitalVucabzgGACHZNSFGO7420-51-28 11:39:00 Test Item Value Reference Range Interpretation Comments WBC (test code = WBC) 14.4 3.7-10.4 [facility]2018-01-31 11:39:00 Test Item Value Reference Range Interpretation Comments eGFR (test code = eGFR) 87 [facility]2018-01-31 11:39:00 Test Item Value Reference Range Interpretation Comments Glucose Lvl (test code = Glucose Lvl) 112 70-99 [facility]2018-01-31 11:39:00 Test Item Value Reference Range Interpretation Comments Calcium Lvl (test code = Calcium Lvl) 9.3 8.5-10.5 [facility]2018-01-31 11:39:00 Test Item Value Reference Range Interpretation Comments BUN (test code = BUN) 12 7-22 [facility]2018-01-31 11:39:00 Test Item Value Reference Range Interpretation Comments Creatinine Lvl (test code = Creatinine 0.70 0.50-1.40 Lvl) [facility]2018-01-31 11:39:00 Test Item Value Reference Range Interpretation Comments Sodium Lvl (test code = Sodium Lvl) 140 135-145 [facility]2018-01-31 11:39:00 Test Item Value Reference Range Interpretation Comments CO2 (test code = CO2) 27 24-32 [facility]2018-01-31 11:39:00 Test Item Value Reference Range Interpretation Comments Calcium Lvl (test code = Calcium Lvl) 9.3 8.5-10.5 [facility]2018-01-31 11:39:00 Test Item Value Reference Range Interpretation Comments Potassium Lvl (test code = Potassium 4.2 3.5-5.1 Lvl) [facility]2018-01-31 11:39:00 Test Item Value Reference Range Interpretation Comments Chloride Lvl (test code = Chloride Lvl) 105 95-109 [facility]2018-01-31 11:39:00 Test Item Value Reference Range Interpretation Comments AGAP (test code = AGAP) 12.2 10.0-20.0 [facility] HospitalLgiapabIATZGEYURM3054-53-47 11:39:00 Test Item Value Reference Range Interpretation Comments Monocytes # (test code = Monocytes #) 1.1 <=0.8 [facility] HospitalEnbbtmdNVGNMKECJI8684-13-18 11:39:00 Test Item Value Reference Range Interpretation Comments Lymphocytes # (test code = Lymphocytes 1.1 1.0-5.5 #) [facility]2018-01-31 11:39:00 Test Item Value Reference Range Interpretation Comments Potassium Lvl (test code = Potassium 4.2 3.5-5.1 Lvl) [facility] HospitalJeddcdmOEYKTMAFXZ7264-89-51 11:39:00 Test Item Value Reference Range Interpretation Comments Basophils (test code = Basophils) 0.3 <=1.0 [facility] HospitalEzkqlnuZHTIUBVYPJ5697-40-78 11:39:00 Test Item Value Reference Range Interpretation Comments Segs (test code = Segs) 84.4 45.0-75.0 [facility] HospitalJhxxwulTDIEPHCFQL5279-34-53 11:39:00 Test Item Value Reference Range Interpretation Comments Lymphocytes (test code = Lymphocytes) 7.5 20.0-40.0 [facility] HospitalDacunsrUQCSUWNALB4713-19-58 11:39:00 Test Item Value Reference Range Interpretation Comments Segs-Bands # (test code = Segs-Bands #) 12.2 1.5-8.1 [facility] HospitalNhxqzqpHZVQWHKIRJ3986-16-37 11:39:00 Test Item Value Reference Range Interpretation Comments Monocytes (test code = Monocytes) 7.8 2.0-12.0 [facility] HospitalXqlagybPOFBMPMELG6510-91-26 11:39:00 Test Item Value Reference Range Interpretation Comments MCH (test code = MCH) 29.4 pg 27.0-31.0 [facility] HospitalJvktssvVTIQDEEJKC0355-76-15 11:39:00 Test Item Value Reference Range Interpretation Comments MCV (test code = MCV) 89.6 80.0-98.0 [facility] HospitalCywmoffYUKITUJULL7990-88-12 11:39:00 Test Item Value Reference Range Interpretation Comments Platelet (test code = Platelet) 288 133-450 [facility] HospitalUgewpvnTXVRAGIHNC6521-51-29 11:39:00 Test Item Value Reference Range Interpretation Comments RDW (test code = RDW) 14.5 11.5-14.5 [facility] HospitalEjwnjxzWHYVVJLSHF2682-23-44 11:39:00 Test Item Value Reference Range Interpretation Comments MCHC (test code = MCHC) 32.8 32.0-36.0 [facility]2018-01-31 11:39:00 Test Item Value Reference Range Interpretation Comments Chloride Lvl (test code = Chloride Lvl) 105 95-109 [facility]FbcwecqGZUNWPWAOU7278-61-90 11:39:00 Test Item Value Reference Range Interpretation Comments RBC (test code = RBC) 3.88 4.20-5.40 [facility] HospitalCbwbbsmRAZXZRNTMR5732-92-67 11:39:00 Test Item Value Reference Range Interpretation Comments Hct (test code = Hct) 34.8 36.0-48.0 [facility] HospitalRpbgemnSRRFIIHQQV8128-93-48 11:39:00 Test Item Value Reference Range Interpretation Comments Hgb (test code = Hgb) 11.4 12.0-16.0 [facility] HospitalEzaiwhcYGMNUHLDKJ9545-31-70 11:39:00 Test Item Value Reference Range Interpretation Comments MPV (test code = MPV) 8.4 7.4-10.4 [facility]2018-01-31 11:39:00 Test Item Value Reference Range Interpretation Comments AGAP (test code = AGAP) 12.2 10.0-20.0 [facility] HospitalMwioxfsFYMVXBDVRA3479-39-46 11:39:00 Test Item Value Reference Range Interpretation Comments Monocytes # (test code = Monocytes #) 1.1 <=0.8 [facility] HospitalGccrnmkEKTJDRNESQ0997-15-00 11:39:00 Test Item Value Reference Range Interpretation Comments Lymphocytes # (test code = Lymphocytes 1.1 1.0-5.5 #) [facility] HospitalRqfiawoIBPVPZPWZH3733-86-45 11:39:00 Test Item Value Reference Range Interpretation Comments Basophils (test code = Basophils) 0.3 <=1.0 [facility] HospitalPaqsggvLUKYLMCDYO5316-10-90 11:39:00 Test Item Value Reference Range Interpretation Comments Segs (test code = Segs) 84.4 45.0-75.0 [facility] HospitalWivnierEMJRMJZUEP1740-23-51 11:39:00 Test Item Value Reference Range Interpretation Comments Lymphocytes (test code = Lymphocytes) 7.5 20.0-40.0 [facility] HospitalXjyypyhPDVKXQTZDA9250-44-86 11:39:00 Test Item Value Reference Range Interpretation Comments Segs-Bands # (test code = Segs-Bands #) 12.2 1.5-8.1 [facility] HospitalKworylbUVYDOWDXNW2476-38-13 11:39:00 Test Item Value Reference Range Interpretation Comments Monocytes (test code = Monocytes) 7.8 2.0-12.0 [facility] HospitalRspkmkoAFGGYIXRKR3482-08-28 11:39:00 Test Item Value Reference Range Interpretation Comments MCH (test code = MCH) 29.4 pg 27.0-31.0 [facility] HospitalSczlvksBJORQUQFJS8001-87-64 11:39:00 Test Item Value Reference Range Interpretation Comments MCV (test code = MCV) 89.6 80.0-98.0 [facility] HospitalPrntifoNYCBQOTZRT0192-53-60 11:39:00 Test Item Value Reference Range Interpretation Comments Platelet (test code = Platelet) 288 016-450 [facility] HospitalQvfxzouTKBLENNZJE7459-17-44 11:39:00 Test Item Value Reference Range Interpretation Comments RDW (test code = RDW) 14.5 11.5-14.5 [facility]zn[facility]eyqTZYNWZYFBW2482-13-75 11:39:00 Test Item Value Reference Range Interpretation Comments MCHC (test code = MCHC) 32.8 32.0-36.0 [facility] HospitalUkoyqekMFRJOETANW1937-49-68 11:39:00 Test Item Value Reference Range Interpretation Comments RBC (test code = RBC) 3.88 4.20-5.40 [facility]EomasgvNMXRRWKQIH4490-35-09 11:39:00 Test Item Value Reference Range Interpretation Comments Hct (test code = Hct) 34.8 36.0-48.0 [facility]AdbwhtqMXEWBATIXP0020-89-33 11:39:00 Test Item Value Reference Range Interpretation Comments Hgb (test code = Hgb) 11.4 12.0-16.0 [facility] HospitalTnbnhohKCUEAAZYXW4664-76-86 11:39:00 Test Item Value Reference Range Interpretation Comments MPV (test code = MPV) 8.4 7.4-10.4 [facility] CampusEwcqehfGBTNXAYQUW9575-18-03 11:39:00 Test Item Value Reference Range Interpretation Comments WBC (test code = WBC) 14.4 3.7-10.4 [facility] WKAKTMN9074-72-25 14:57:00 Test Item Value Reference Range Interpretation Comments Antibody Scrn (test Negative (05/30/17 8:57 code = Antibody Scrn) AM) [facility] RJCXPMI0386-59-47 14:57:00 Test Item Value Reference Range Interpretation Comments ABO/Rh (test code = ABO/Rh) O POS [facility] LTTROWH7914-92-79 14:57:00 Test Item Value Reference Range Interpretation Comments Antibody Scrn (test Negative (05/30/17 8:57 code = Antibody Scrn) AM) [facility] JABAXAN4027-76-20 14:57:00 Test Item Value Reference Range Interpretation Comments ABO/Rh (test code = ABO/Rh) O POS [facility] JIFSLFNNX3447-07-46 20:45:00 Test Item Value Reference Range Interpretation Comments Hgb A1C (test code = Hgb A1C) 6.4 [facility] LKPWHLNRN6761-16-14 20:45:00 Test Item Value Reference Range Interpretation Comments Hgb A1C (test code = Hgb A1C) 6.4 [facility]
[2023-03-09] MEDS ORDERED: ACETAMINOPHEN 500 MG TAB ONE (14:06)
[2023-03-09 14:40] LABS: Specific Gravity 1.017 (1.005-1.030); Urine Bacteria <20 /HPF (<20); Urine Bilirubin NEGATIVE (Negative); Urine Blood Negative (Negative); Urine Clarity Turbid (Clear); Urine Color Light-Yellow (Yellow); Urine Crystals Unidentified Few /HPF (None Seen); Urine Glucose NEGATIVE (Negative); Urine Mucus Slight /HPF (None Seen); Urine Protein NEGATIVE (Negative); Urine RBC <5 /HPF (None Seen); Urine Urobilinogen Normal (Normal); Urine pH 7.5 (5.0-7.0)
--- NOTE | 2023-03-09 14:58 | EDPHYS ---
Physician Documentation [facility] Name: Nanette Walker Age: 77 yrs Sex: Female : 1945 Arrival Date: 03/09/2023 Time: 12:39 Bed Treatment Private MD: ED Physician Rima Gould HPI: 03/09 14:53 This 77 yrs old Female presents to ER via Ambulatory with complaints of Arm Pain, jr8 Urinary Problem. 14:53 77-year-old female patient that presented to the emergency room with complaints of jr8 erythema, tenderness, swelling to the right dorsal forearm. Patient stated that she had a dog bite about 2 months ago there and picks at it every once in a while. For the past day or 2 now has had increased pain warmth and tenderness to that region. Also stated for the past few weeks has had on and off frequency and urgency. Denies blood or abdominal pain.. Historical: - Allergies: 13:06 No Known Allergies; kd3 - Immunization history:: Adult Immunizations up to date. - Social history:: Smoking status: Patient denies any tobacco usage or history of. ROS: 14:53 Eyes: Negative for injury, pain, redness, and discharge, ENT: Negative for injury, jr8 pain, and discharge, Neck: Negative for injury, pain, and swelling, Cardiovascular: Negative for chest pain, palpitations, and edema, Respiratory: Negative for shortness of breath, cough, wheezing, and pleuritic chest pain, Abdomen/GI: Negative for abdominal pain, nausea, vomiting, diarrhea, and constipation, Back: Negative for injury and pain, 14:53 MS/Extremity: Negative for injury and deformity, Neuro: Negative for headache, weakness, numbness, tingling, and seizure, 14:53 : Positive for urinary symptoms, 14:53 Skin: Positive for erythema, swelling, of the right arm, Exam: 14:53 Constitutional: This is a well developed, well nourished patient who is awake, alert, jr8 and in no acute distress. Cardiovascular: Regular rate and rhythm with a normal S1 and S2. No gallops, murmurs, or rubs. Normal PMI, no JVD. No pulse deficits. Respiratory: Lungs have equal breath sounds bilaterally, clear to auscultation and percussion. No rales, rhonchi or wheezes noted. No increased work of breathing, no retractions or nasal flaring. Abdomen/GI: Soft, non-tender, with normal bowel sounds. No distension or tympany. No guarding or rebound. No evidence of tenderness throughout. Back: No spinal tenderness. No costovertebral tenderness. Full range of motion. MS/ Extremity: Pulses equal, no cyanosis. Neurovascular intact. Full, normal range of motion. Neuro: Awake and alert, GCS 15, oriented to person, place, time, and situation. Cranial nerves II-XII grossly intact. Motor strength 5/5 in all extremities. Sensory grossly intact. Cerebellar exam normal. Normal gait. 14:53 Skin: Patient has 7.5 cm region of erythema, swelling, tenderness to the dorsal right forearm just proximal to the right wrist. No exudative material from the old bite [place] noted. Small amount of lymphangitic spreading also noted. Wound is warm to palpation.. Vital Signs: 13:00 Pulse 74; Resp 17; Temp 100.4(O); Pulse Ox 96% on R/A; Weight 88 kg; Height 5 ft. 0 in. kd3 ; Pain 6/10; 13:02 BP 189 / 81; kd3 13:00 Body Mass Index 37.89 (88.00 kg, 152.4 cm) kd3 13:00 Pain Scale: Adult kd3 MDM: 13:14 Patient medically screened. [facility] 14:53 Data reviewed: vital signs, nurses notes, lab test result(s), and as a result, I will jr8 discharge patient. Consideration of Admission/Observation Escalation of care including admission/observation considered. I considered the following discharge prescriptions or medication management in the emergency department Medications were administered in the Emergency Department. See MAR. Counseling: I had a detailed discussion with the patient and/or guardian regarding the historical points, exam findings, and any diagnostic results supporting the discharge/admit diagnosis, lab results, the need for outpatient follow up, a family practitioner, to return to the emergency department if symptoms worsen or persist or if there are any questions or concerns that arise at home. Response to treatment: the patient's symptoms have mildly improved after treatment. ED course: Discussed with patient that she most likely has a mild urinary tract infection will send for culture. Concerned about the right arm as she does have a cellulitis with lymphangitis and mild fever. Patient is not tachycardic and has stable blood pressures. We will start her on Bactrim for her cellulitis, and this can also be used for urinary tract infections as well. Patient denies any known renal dysfunction. To follow-up with her PCP in the next few days to ensure that she is improving and that her fevers are not getting worse or that she is not having worsening of symptoms. If she were to have any of that to immediately come back to the emergency room for further reevaluation and possible admission. Patient understood and agreed with plan at this time.. 03/09 13:45 Order name: Urinalysis W/Microscopic; Complete Time: 14:53 jr8 03/09 14:52 Order name: Urine Culture EDMS Administered Medications: 14:03 Drug: Acetaminophen PO 1000 mg PO once Route: PO; me1 Disposition Summary: 03/09/23 14:58 Discharge Ordered Notes: Location: Home jr8 Problem: new jr8 Symptoms: have improved jr8 Condition: Stable jr8 Diagnosis - Cellulitis of right upper limb jr8 - Acute cystitis jr8 Followup: jr8 - With: Private Physician - When: 2 - 3 days - Reason: Wound Recheck, Recheck today's complaints, Continuance of care, Re-evaluation by your physician Discharge Instructions: - Discharge Summary Sheet jr8 - Cellulitis, Adult jr8 - Urinary Tract Infection, Adult jr8 Forms: - Medication Reconciliation Form jr8 - Thank You Letter jr8 - Antibiotic Education jr8 - Prescription Opioid Use jr8 - Patient Portal Instructions jr8 - Leadership Thank You Letter jr8 Prescriptions: - Bactrim DS 800-160 mg Oral Tablet - take 1 tablet ORAL route every 12 hours for 10 days; 20 tablet; Refills: 0, jr8 Product Selection Permitted Signatures: Dispatcher [employer] EDMS Gatito Lacey PA PA jr8 Tiffany Pablo RN RN kd3 Carla No RN RN me1
--- NOTE | 2023-03-09 14:58 | ER ---
Nurse's Notes [facility] Name: Nanette Walker Age: 77 yrs Sex: Female : 1945 Arrival Date: 03/09/2023 Time: 12:39 Bed Treatment Private MD: Diagnosis: Cellulitis of right upper limb;Acute cystitis Presentation: 03/09 13:02 Chief complaint:. Chief complaint: Patient states: I am primarily here for my right arm kd3 pain ad swelling. It has been swollen since last night but about 2 months ago a dog had clawed my arm and i had been picking at it. I also have been having some urinary symptoms and frequency. I think i have a kidney infection. Coronavirus screen: Vaccine status: Patient reports being unvaccinated. Ebola Screen: No symptoms or risks identified at this time. Initial Sepsis Screen: Does the patient meet any 2 criteria? No. Patient's initial sepsis screen is negative. Does the patient have a suspected source of infection? No. Patient's initial sepsis screen is negative. Risk Assessment: Do you want to hurt yourself or someone else? Patient reports no desire to harm self or others. Onset of symptoms was March 09, 2023. 13:02 Method Of Arrival: Ambulatory kd3 13:02 Acuity: DIVYA 3 kd3 Triage Assessment: 13:06 General: Appears in no apparent distress. Behavior is calm, cooperative. Pain: kd3 Complains of pain in right arm. Historical: - Allergies: 13:06 No Known Allergies; kd3 - Immunization history:: Adult Immunizations up to date. - Social history:: Smoking status: Patient denies any tobacco usage or history of. Screenin:06 [facility] ED Fall Risk Assessment (Adult) History of falling in the last 3 months, me1 including since admission No falls in past 3 months (0 pts) Confusion or Disorientation No (0 pts) Intoxicated or Sedated No (0 pts) Impaired Gait No (0 pts) Mobility Assist Device Used No (0 pt) Altered Elimination No (0 pt) Score/Fall Risk Level 0 - 2 = Low Risk. Abuse screen: Denies threats or abuse. Nutritional screening: No deficits noted. Tuberculosis screening: No symptoms or risk factors identified. Assessment: 14:03 General: Appears uncomfortable, well groomed, well developed, well nourished, Behavior me1 is calm, cooperative, appropriate for age, c/o right arm swelling and pain that started last night. Reports she had a dog claw her arm about 2 months ago and she was picking at it. Also c/o urinary frequency and is concerned she has a UTI. . Pain: Complains of pain in right arm Pain does not radiate. Pain currently is 7 out of 10 on a pain scale. Quality of pain is described as burning, sharp, Pain began 1 day ago. Is continuous, Alleviated by. Neuro: Level of Consciousness is awake, alert, obeys commands, Oriented to person, place, time, situation, Appropriate for age. Cardiovascular: Capillary refill < 3 seconds Patient's skin is warm and dry. Respiratory: Airway is patent Respiratory effort is even, unlabored, Respiratory pattern is regular, symmetrical. Derm: Wound noted right arm Other: small open wound with redness and swelling to RFA. Vital Signs: 13:00 Pulse 74; Resp 17; Temp 100.4(O); Pulse Ox 96% on R/A; Weight 88 kg; Height 5 ft. 0 in. kd3 ; Pain 6/10; 13:02 BP 189 / 81; kd3 13:00 Body Mass Index 37.89 (88.00 kg, 152.4 cm) kd3 13:00 Pain Scale: Adult kd3 ED Course: 12:43 Patient arrived in ED. rg4 13:06 Triage completed. kd3 13:06 Arm band placed on left wrist. kd3 13:14 Gatito Lacey PA is PHCP. jr8 13:14 Rima Gould MD is Attending Physician. jr8 13:49 Carla No, CHLOE is Primary Nurse. me1 14:06 Patient has correct armband on for positive identification. Bed in low position. Call me1 light in reach. Provided Education on: POC. Verbalized understanding. . 14:06 No provider procedures requiring assistance completed. me1 Administered Medications: 14:03 Drug: Acetaminophen PO 1000 mg PO once Route: PO; me1 Medication: 14:07 VIS not applicable for this client. me1 Outcome: 14:58 Discharge ordered by . jr8 15:03 Patient left the ED. iw Addendum: 03/12/2023 10:32 Addendum: Culture Results: Positive urine culture. No further action required. Bacteria e b sensitive to prescribed antibiotic. Signatures: Kennedi Roblero, RN RN iw Gatito Lacey PA PA jr8 Odette Kellogg4 Ana Laura Chris Kyli, RN RN kd3 Carla No RN RN me1
[2023-03-09 15:12] VITALS: TEMP 100.4; O2SAT 96
[2023-03-09 15:14] VITALS: BP 189/81
== END 2023-03-09 15:03 | disposition home or self-care (01) ==
LOC: ER 12:39
DX: L03.113 Cellulitis of right upper limb (principal); N30.00 Acute cystitis without hematuria
CPT/HCPCS: 81001; 87077; 87086; 87088; 87186; 99282